=== PATIENT | male | born 1960 | race Caucasian/White ===

== ENCOUNTER 2018-08-10 22:31 | Emergency (ER) | payer OTHER ==
[2018-08-11] MEDS: LIDOCAINE 1% (MDV) 10 ML INJ INJ (00:14)
[2018-08-11] MEDS: DIPHTH/TET/ACEL PERTUSS (ADULT) 0.5 ML VIAL IM* (00:27)
[2018-08-11] MEDS: LIDOCAINE 1% (MPF) 30 ML INJ INJ (01:00)
== END 2018-08-11 02:03 | disposition home or self-care (01) ==
LOC: FTE 08-11 02:03
DX: S61.412A Laceration without foreign body of left hand, initial encounter (principal); W25.XXXA Contact with sharp glass, initial encounter; Y92.9 Unspecified place or not applicable; Z23 Encounter for immunization
CPT/HCPCS: 12001; 73130-LT; 90471; 90715; 99283-25